=== PATIENT | female | born 1985 ===

== ENCOUNTER 2016-11-04 20:43 | Emergency (ER) | payer BC, OTHER ==
[2016-07-06 00:30] VITALS: BMI 19.5
--- NOTE | 2016-11-04 22:00 | OBHP ---
Datetime: 11/04/2016 21:30 IP Adm Impression: Term, intrauterine IP Admit Plan: Discharge home Admit Comment, IP Provider: 31 yo IUP at term (EDC Joo 20 by LMP...EDC by her other dates Ju ne -). She is a patient of Dr Brown. She came to check '[to see if her baby was OK". She felt p ressure earlier today. Not regular. not painful. Midline and suprapubic. No SROM. No VB. +FM. No H A. No visual dist Undocumented PNC (left papers at home). She saw Dr Brown since 6w...recently transferred to [facility] is doctor (?name) at [facility] because of her ''age/low blood''. She went to get a consultation once and since has only been seeing nurses (no BP checks, no finger sticks - ? reason). She does not have ano ther consultation with him. She was told that the high risk professional delivers at [facility] and [facility]... She does have another OB follow up appt with Dr Kevin russell. PMH: denies PSH: denies POBGYNH: spont Ab x 1 (D_C done by Dr Brown at [facility] [place]) NKA PSoH: no smoking; ETOH drugs A: IUP at term reactive NST/not in labor Undocmented care PLAN: will discharge home, follow up Dr Kevin russell as scheduled labor instructoins/pre-eclampsia warning Advised that she obtains records from both Dr Brown and high risk professional to clarify plan/place of delivery. Her partner was present and agreed to make sure that she brings records. Pelvic Type - PN: Adequate Extremities - PN: Normal Abdomen - PN: Normal Back - PN: Normal Thyroid - PN: Normal Neurologic - PN: Normal HEENT - PN: Normal General - PN: Normal Presentation-Admit: Vertex IP Fetus A Comments: Sono cephalic FHR - Baseline A Provider: 140 Membranes, Provider: Intact Contraction Comments Provider: occ Comments, ACOG Physical Exam: ROS: general: no fatigue/no weakness HEENT: no RODRIGUES; no visual dist CV: No CP; No palpitations Resp: no SOB; no cough GI: No N/V/D : no F/U/D MS: no joint pain Pool Provider: Negative IP Hx Assessment: Undocumented (Dr Brown [facility] and high risk doctor?name) EGA AdmitDate IP: 38.6 Vital Signs Provider: Reviewed; Within Normal Limits Vital Signs Provider Details: BP 124/70 IP Chief Complaint: Other NICHD Variability Prov Fetus A: Moderate 6-25bpm NICHD Accel Fetus A IP Provider: [id number] FHR Category Provider Fetus A: Category I NICHD Decel Fetus A IP Provider: None Dilatation, Provider: 0 Effacement, Provider: 0 Station, Provider: high Genitourinary Exam: Normal
--- NOTE | 2016-11-04 22:00 | OBDCSUM ---
Datetime: 11/04/2016 21:39 Discharged to, Provider: Home Follow up at, Provider: [employer] Disch Instr Activity: Normal activity Disch Instr Diet: Regular Discharge Diagnosis, Provider: False Labor - Undelivered Discharge Time: 11/04/2016 21:40 Follow up in weeks, Provider: 11/05/2016 Disch Activity Restrictions: No lifting
== END 2016-11-04 21:50 | disposition home or self-care (01) ==
LOC: H.EROB2 20:43
DX: O47.1 False labor at or after 37 completed weeks of gestation (principal); Z3A.38 38 weeks gestation of pregnancy